=== PATIENT | female | born 1990 | race Caucasian/White ===

== ENCOUNTER 2017-11-22 14:13 | Emergency (ER) | payer OTHER ==
[~2017-11-22] VITALS: Ht 154.9 cm; Wt 64.0 kg
[~2017-11-22 14:13] MED LIST: ANECREAM30 GM TP; ATARAX10 MG PO; BENADRYL25 MG PO; COLACE100 MG PO; IBUPROFEN600 MG PO; IBUPROFEN800 MG PO; LEXAPRO20 MG PO; NEXPLANON68 MG SC; PERCOCET 5/31 TABLET PO; PRENATAL TABLE1 EAC3 PO; TYLENOL REGULA325 MG PO; VICODIN 5-3001 EACH PO
[2017-11-22 16:49] VITALS: BP 126/91
== END 2017-11-22 16:50 | disposition home or self-care (01) ==
LOC: EME 14:13
DX: J06.9 Acute upper respiratory infection, unspecified (principal); J02.9 Acute pharyngitis, unspecified; Z87.891 Personal history of nicotine dependence
CPT/HCPCS: 70360; 99281; 99284; J1100